=== PATIENT | male | born 1990 | race Caucasian/White ===

== ENCOUNTER 2021-07-18 19:54 | Emergency (ER) | payer OTHER | END 2021-07-18 20:06 | disposition left against medical advice (07) | LOC: JD.ED 19:54 | DX: Z53.21 Procedure and treatment not carried out due to patient leaving prior to being seen by health care provider (principal) ==

== ENCOUNTER 2021-07-18 20:25 | Emergency (ER) | payer BC, OTHER ==
[2021-07-18] MEDS ORDERED: predniSONE 20 MG Tab PO ONE (21:10)
--- NOTE | 2021-07-18 21:15 | EDM.PDOC ---
ED HPI GENERAL MEDICAL PROBLEM - General Chief Complaint: Respiratory Problem Stated Complaint: LOTS OF DRAINAGE, SORE THROAT, CONGESTION Time Seen by Provider: 07/18/21 20:41 Source of Information: Reports: Patient, RN Notes Reviewed History Limitations: Reports: No Limitations - History of Present Illness INITIAL COMMENTS - FREE TEXT/NARRATIVE: Patient is a 31-year-old male who presents to the ER for evaluation of his multiple upper respiratory symptoms. States that he had a flulike illness about 2 weeks ago. And recovered from this. Notes that on Friday, July 16, 2021, he developed some upper respiratory symptoms again to include a sore throat, nasal congestion and a dry and nonproductive cough. States he has a history of asthma, and that he was wheezing from time to time, and that his inhaler seems to control the wheezing. Otherwise denies any other past medical history. Not having any nausea or vomiting or diarrhea. Patient has had COVID-19 in the past . Throat Pain Score (Numeric/FACES): 5 - Related Data Allergies Allergy/AdvReac Type Severity Reaction Status Date / Time No Known Allergies Allergy Verified 07/18/21 20:41 Home Meds: Home Meds Albuterol Inhaler. 1 - 2 puff I[facility] ONCALL PRN 01/02/14 [History] predniSONE 20 mg PO ASDIRECTED #10 tab 07/18/21 [Rx] Past Medical History Respiratory History: Reports: Asthma - Infectious Disease History Infectious Disease History: Reports: Novel Coronavirus Social & Family History - Tobacco Use Tobacco Use Status *Q: Current Every Day Tobacco User Years of Tobacco use: 15 Packs/Tins Daily: 0.5 - Caffeine Use Caffeine Use: Reports: Coffee, Energy Drinks, Soda - Recreational Drug Use Recreational Drug Use: No ED ROS GENERAL - Review of Systems Review Of Systems: Comprehensive ROS is negative, except as noted in HPI. ED EXAM, GENERAL - Physical Exam Exam: See Below Exam Limited By: No Limitations General Appearance: Alert, WD/WN, No Apparent Distress Respiratory/Chest: No Respiratory Distress, Lungs Clear, Normal Breath Sounds, No Accessory Muscle Use, Chest Non-Tender Cardiovascular: Normal Peripheral Pulses, Regular Rate, Rhythm, No Edema Peripheral Pulses: 2+: Radial (L), Radial (R) Extremities: Normal Inspection, Normal Capillary Refill Neurological: Alert, Oriented, Normal Cognition, No Motor/Sensory Deficits Psychiatric: Normal Affect, Normal Mood Skin Exam: Warm, Dry, Intact, Normal Color, No Rash Course - Vital Signs Last Recorded V/S: Last Vital Signs Temp 98.0 F 07/18/21 20:39 Pulse 68 07/18/21 20:39 Resp 20 07/18/21 20:39 BP 150/74 H 07/18/21 20:39 Pulse Ox 100 07/18/21 20:39 - Orders/Labs/Meds Labs: Laboratory Tests 07/18/21 07/18/21 Range/Units 20:00 20:00 Influenza Type A RNA Positive H (NEGATIVE) RSV RNA (INAAT) Negative (NEGATIVE) Influenza Type B RNA Negative (NEGATIVE) SARS-CoV-2 RNA (MIRANDA) Negative (NEGATIVE) Group A Strep (PCR) Not detected (NOT DETECT) Meds: Medications Discontinued Medications Generic Name Dose Route Start Last Admin Trade Name Zacariasq PRN Reason Stop Dose Admin Prednisone 60 mg 07/18/21 21:10 07/18/21 21:22 Prednisone 20 Mg Tab PO 07/18/21 21:11 60 mg ONETIME ONE Administration - Re-Assessments/Exams Free Text/Narrative Re-Assessment/Exam: 07/18/21 21:14 Patient presents to the ER for evaluation of his upper respiratory symptoms. COVID/flu/RSV and strep swab was obtained at time of triage. 07/18/21 21:39 Patient's flu a screen did come back positive, Covid, RSV, and strep were negative. We will discharge the patient home with a burst of steroids for his acute asthma exacerbation due to his wheezing. We will send him with a prescription for azithromycin as well. Departure - Departure Time of Disposition: 21:40 Disposition: Home, Self-Care 01 Condition: Good Clinical Impression: Asthma exacerbation, mild, Influenza A - Discharge Information *PRESCRIPTION DRUG MONITORING PROGRAM REVIEWED*: No *COPY OF PRESCRIPTION DRUG MONITORING REPORT IN PATIENT JOSEPH: No Prescriptions: predniSONE 20 mg PO ASDIRECTED #10 tab Instructions: Metered Dose Inhaler (No Spacer Used) Referrals: PCP,None [Primary Care Provider] - Forms: ED Department Discharge Additional Instructions: You were evaluated in the ER today for your upper respiratory illness. You did test positive for influenza A at today's visit. It is also thought that you have an acute exacerbation of your asthma, due to your wheezing. You have been started on oral steroids and azithromycin. Your first dose was given in the ER, a prescription was sent to the [place] [facility] located in the [employer] [facility], you will need to go there tomorrow and pick these up to take as directed. Recommend you set up with the primary care, for ongoing management of your asthma. I do believe it would be of your benefit to be put on a steroid inhaler regarding your asthma. Our clinic number is [phone], any family practice provider would be able to provide you with the services. Recommend that you take your albuterol inhaler, 2 puffs TID for the next 2 days, then 2 puffs BID for the next 2 days, then you may return to more of a PRN basis. Do not hesitate to return to the ER at any time if symptoms change or worsen. Sepsis Event Note (ED) - Focused Exam Vital Signs: Vital Signs Temp Pulse Resp BP Pulse Ox 07/18/21 20:39 98.0 F 68 20 150/74 H 100
[2021-07-18 21:23] LABS: CORONAVIRUS COVID-19 NAA NEGATIVE (NEGATIVE)
== END 2021-07-18 21:59 | disposition home or self-care (01) ==
LOC: JD.ED 20:25
DX: J45.901 Unspecified asthma with (acute) exacerbation (principal); J10.1 Influenza due to other identified influenza virus with other respiratory manifestations; Z72.0 Tobacco use; Z79.899 Other long term (current) drug therapy; Z20.822 Contact with and (suspected) exposure to COVID-19
CPT/HCPCS: 0241U; 87651; 99284; J7512

== ENCOUNTER 2023-02-05 12:20 | Emergency (ER) | payer BC ==
[2023-02-05] MEDS ORDERED: Sodium Chloride 0.9% 10 ML Syringe FLUSH PRN (13:25)
[2023-02-05] MEDS ORDERED: Ondansetron 4 MG/2 ML SDV IVPUSH ONE (13:26)
[2023-02-05] MEDS ORDERED: Sodium Chloride 0.9% 1,000 ML IV STA (13:26)
[2023-02-05] MEDS ORDERED: Famotidine 20 MG/2 ML SDV IVPUSH ONE (13:27)
[2023-02-05] MEDS ORDERED: Aluminum Hydroxide/Magnesium Hydroxide/Simethicone Susp 30 ML Cup PO ONE (13:27)
[2023-02-05 14:14] LABS: BASOPHILS ABSOLUTE AUTO 0.02 K/mm3 (0.01-0.08); BASOPHILS PERCENT AUTO 0.4 % (0.1-1.2); EOSINOPHILS ABSOLUTE AUTO 0.11 K/mm3 (0.04-0.54); EOSINOPHILS PERCENT AUTO 2.2 (0.8-7.0); HEMATOCRIT 41.2 % (40.1-51.0); HEMOGLOBIN 14.6 gm/dl (13.7-17.5); LYMPHOCYTES ABSOLUTE AUTO 1.27 K/mm3 (1.32-3.57); LYMPHOCYTES PERCENT AUTO 25.2 % (21.8-53.1); MEAN CORPUSCULAR HEMOGLOBIN 29.7 pg (25.7-32.2); MEAN CORPUSCULAR HGB CONC 35.4 g/dl (32.2-35.5); MEAN CORPUSCULAR VOLUME 83.9 fl (79.0-92.2); MEAN PLATELET VOLUME 9.3 fl (9.4-12.3); MONOCYTES ABSOLUTE AUTO 0.61 K/mm3 (0.30-0.82); MONOCYTES PERCENT AUTO 12.1 % (5.3-12.2); NEUTROPHILS ABSOLUTE AUTO 3.02 K/mm3 (1.78-5.38); NEUTROPHILS PERCENT AUTO 60.1 % (34.0-67.9); PLATELET COUNT,PLT 215 K/mm3 (163-337); RED BLOOD CELL COUNT 4.91 M/mm3 (4.63-6.08); WHITE BLOOD CELL COUNT,WBC 5.03 K/mm3 (4.23-9.07)
[2023-02-05 14:35] LABS: A/G RATIO 1.4 (1-2); ALANINE AMINOTRANSFERASE,ALT 28 U/L (16-63); ALBUMIN 3.7 g/dl (3.4-5.0); ALKALINE PHOSPHATASE 91 U/L (46-116); ANION GAP 12.6 (5-15); ASPARTATE AMNIOTRANSFERASE,AST 19 U/L (15-37); BILIRUBIN TOTAL 0.5 mg/dL (0.2-1.0); BLOOD UREA NITROGEN,BUN 17 mg/dL (7-18); BUN/CREATININE RATIO 15.5 (14-18); C-REACTIVE PROTEIN <0.2 mg/dL (<1.0); CALCIUM 8.6 mg/dL (8.5-10.1); CARBON DIOXIDE,CO2 27 mEq/L (21-32); CHLORIDE,CL 106 mEq/L (98-107); CREATININE 1.1 mg/dL (0.7-1.3); EST CRCL DRUG DOSING (CG) 102.68 mL/min; ESTIMATED GFR 91 mL/min (>60); GLUCOSE RANDOM 73 mg/dL (70-99); LIPASE 115 U/L (73-393); POTASSIUM,K 3.6 mEq/L (3.5-5.1); PROTEIN TOTAL,TP 6.4 g/dl (6.4-8.2); SODIUM,NA 142 mEq/L (136-145)
[2023-02-05] MEDS ORDERED: Sucralfate Suspension 1 GM/10 ML Cup PO ONE (14:48)
== END 2023-02-05 15:33 | disposition home or self-care (01) ==
LOC: JD.ED 12:20
DX: R10.13 Epigastric pain (principal); J45.909 Unspecified asthma, uncomplicated; Z86.16 Personal history of COVID-19; Z79.899 Other long term (current) drug therapy
CPT/HCPCS: 36415; 80053; 83690; 85025; 86140; 96374; 96375; 99284; A9270; J2405; J3490; J7030; 99283